=== PATIENT | female | born 1975 | race Caucasian/White ===

== ENCOUNTER 2017-05-02 18:57 | Emergency (ER) | payer SELFPAY ==
[2017-05-02 19:03] VITALS: BMI 31.3
[2017-05-02] MEDS ORDERED: NS 1000 ML 1,000 ML ONE (19:17)
--- NOTE | 2017-05-02 19:21 | DR.CP ---
HPI - Time Seen Time seen: 17:05 - PCP Primary Care Physician: NFD - Complaint Chief Complaint Doctor Comments: Patient states that she feels the way she felt when she was using "meth" Chief Complaint:: PT STATES, "I'M HURTING IN MY CHEST ALL THE WAY AROUND TO MY BACK." PT STATES, "IT WAS HURTING AROUND WHERE MY KIDNEYS ARE TOO." - Source History Provided: Patient - Mode of Arrival Mode of Arrival: Ambulatory - Timing Onset of Chief Complaint: 05/02/17 PMH - PMH Past Medical History: Yes Past Medical History: Asthma Past Surgical History: Yes Surgical History: , Cholecystectomy - Family History History of Family Medical Conditions: Yes Family Medical History: MD, Hypertension - Social History Alcohol Use: None Do you use any recreational Drugs:: No Lives With: Family Lives Where: Home - infectious screening In the last 2 months have you had wt loss of >10#?: NO Have you had fever, night sweats or hemotysis?: No Have you traveled outside the country in the last 6 months?: No Isolation: Standard ROS - Review of Systems Constitutional: negative: Diaphoresis Eyes: No Symptoms Reported ENTM: No Symptoms Reported Respiratoy: No Symptoms Reported Cardiovascular: Chest Pain Gastrointestinal/Abdominal: No Symptoms Reported Genitourinary: No Symptoms Reported Neurological: No Symptoms Reported Musculoskeletal: Back Pain Integumentary: No Symptoms Reported Hematologic/Lymphatic: No Symptoms Reported Endocrine: No Symptoms Reported Psychiatric: No Symptoms Reported All Other Systems: Reviewed and Negative PE - Vitals Vitals: Temperature 98.8 F Pulse Rate [Apical] 72 Pulse Rate 87 Respiratory Rate 20 Blood Pressure [Left Arm] 147/88 Blood Pressure 152/106 O2 Sat by Pulse Oximetry 96 - General Limitations: No Limitations General Appearance: Alert, Anxious - Head Head Exam: Normal Inspection, Atraumatic - Eyes Eye exam: Normal Appearance, PERRL, EOMI - ENT ENT Exam: Normal Exam - Chest Chest Inspection: Normal Inspection, Symmetric Chest Wall Rise - Respiratory Respiratory Exam: Normal Lung Sounds Bilat Respiratory Exam: Bilateral Clear to Auscultation - Cardiovascular Cardiovascular Exam: Regular Rate, Normal Rhythm Pulse: Normal, Radial Edema: Normal - Abdominal Exam Abdominal Exam: Normal Inspection Abdominal Tenderness: negative: RUQ, RLQ, LUQ, LLQ, Epigastrium, Suprapubic, Diffuse, Mild, Moderate, Severe, Other - Extremities Extremities Exam: Normal Inspection - Back Back Exam: Normal Inspection - Neurologic Neurological Exam: Alert, Oriented X3, CN II-XII Intact - Psychiatric Psychiatric Exam: Normal Affect - Skin Skin Exam: Warm, Dry Course - Reevaluation 1st: Improved ROR - Labs Reviewed Laboratory Results Reviewed?: Yes (cardiacs negative) Result Diagrams: 05/02/17 19:25 05/02/17 19:25 Laboratory: WBC 13.3 X10^3/uL (3.6-10.0) H 05/02/17 19:25 RBC 4.48 X10^6/uL (3.5-5.4) 05/02/17 19:25 Hgb 13.5 g/dL (12.0-16.0) 05/02/17 19:25 Hct 39.0 % (36.0-47.0) 05/02/17 19:25 MCV 86.9 fL (80.0-100.0) 05/02/17 19:25 MCH 30.1 pg (27.0-34.0) 05/02/17 19:25 MCHC 34.7 g/dL (33.0-35.0) 05/02/17 19:25 RDW 12.5 % (11.6-16.5) 05/02/17:25 Plt Count 334 X10^3/uL (150.0-450.0) 05/02/17 19:25 MPV 7.8 fL (7.4-11.0) 05/02/17 19:25 Neut % 66.1 % (42.0-75.0) 05/02/17 19:25 Lymph % 23.4 % (21.0-51.0) 05/02/17 19:25 [place] % 6.7 % (0.0-13.0) 05/02/17 19:25 Eos % 3.1 % (0.9-2.9) H 05/02/17 19:25 Baso % 0.7 % (0.2-1.0) 05/02/17 19:25 Neut # 8.8 x10^3/uL (2.2-4.8) H 05/02/17 19:25 Lymph # 3.1 X10^3/uL (1.3-2.9) H 05/02/17 19:25 [place] # 0.9 x10^3/uL (0.3-0.8) H 05/02/17 19:25 Eos # 0.4 x10^3/uL (0.0-0.2) H 05/02/17 19:25 Baso # 0.1 X10^3/uL (0.0-0.1) 05/02/17 19:25 Absolute Nucleated RBC 0.1 /100WBC 05/02/17 19:25 Sodium 141 mmol/L (136-145) 05/02/17 19:25 Corrected Sodium TNP 05/02/17 19:25 Potassium 3.7 mmol/L (3.5-5.1) 05/02/17 19:25 Chloride 105 mmol/L (98-107) 05/02/17 19:25 Carbon Dioxide 26.1 mmol/L (21-32) 05/02/17 19:25 BUN 18 mg/dL (7-18) 05/02/17 19:25 Creatinine 0.88 mg/dL (0.55-1.02) 05/02/17 19:25 Est GFR (MDRD) Af Amer > 60 (>60) 05/02/17 19:25 Est GFR (MDRD) Non-Af > 60 (>60) 05/02/17 19:25 Glucose 104 mg/dL (65-99) H 05/02/17 19:25 Calcium 9.2 mg/dL (8.5-10.1) 05/02/17 19:25 Corrected Calcium TNP 05/02/17 19:25 Total Bilirubin 0.30 mg/dL (0.2-1.0) 05/02/17 19:25 AST 17 Units/L (15-37) 05/02/17 19:25 ALT 21 Units/L (12-78) 05/02/17 19:25 Alkaline Phosphatase 72 Units/L (46-116) 05/02/17 19:25 Creatine Kinase 106 Units/L (26-192) 05/02/17 19:25 CK-MB (CK-2) 1.4 ng/mL (0-4.0) 05/02/17 19:25 CK/CKMB % Calc 1.3 % (<4) 05/02/17 19:25 Troponin I < 0.02 ng/mL (0-1.5) 05/02/17 19:25 Total Protein 7.9 g/dL (6.4-8.2) 05/02/17 19:25 Albumin 3.9 g/dL (3.4-5.0) 05/02/17 19:25 Globulin 4.0 g/dL (2.5-4.5) 05/02/17 19:25 Albumin/Globulin Ratio 1.0 Ratio (1.1-2.1) L 05/02/17 19:25 Specimen Type Clean catch urine 05/02/17 19:54 Urine Color Yellow (YELLOW) 05/02/17 19:54 Urine Appearance Clear (CLEAR) 05/02/17 19:54 Urine pH 5.0 (5.0 - 8.0) 05/02/17 19:54 Ur Specific [place] 1.025 (1.000-1.030) 05/02/17 19:54 Urine Protein Negative (NEGATIVE) 05/02/17 19:54 Urine Glucose (UA) Negative (NEGATIVE) 05/02/17 19:54 Urine Ketones Negative (NEGATIVE) 05/02/17 19:54 Urine Occult Blood 1+ (NEGATIVE) 05/02/17 19:54 Urine Nitrite Negative (NEGATIVE) 05/02/17 19:54 Urine Bilirubin Negative (NEGATIVE) 05/02/17 19:54 Urine Urobilinogen Normal (NORMAL) 05/02/17 19:54 Ur Leukocyte Esterase Negative (NEGATIVE) 05/02/17 19:54 Urine RBC 0-2 /HPF (NEGATIVE) 05/02/17 19:54 Urine WBC 0-2 /HPF (NEGATIVE) 05/02/17 19:54 Ur Squamous Epith Cells Rare /HPF (NEGATIVE) 05/02/17 19:54 Urine Bacteria Trace /HPF (NEGATIVE) 05/02/17 19:54 Ur Culture Indicated? No/not indicated 05/02/17 19:54 - EKG [place]: RAD Rhythm: NSR - Diagnosis Discharge Problem: Anxiety - Discharge Plan Condition: Stable - Follow ups/Referrals Follow ups/Referrals: NFD,None [Primary Care Provider] - 3 days - Instructions
[2017-05-02 19:35] LABS: BASOPHILS # (AUTO) 0.1 X10^3/uL (0.0-0.1); BASOPHILS % (AUTO) 0.7 % (0.2-1.0); EOSINOPHILS # (AUTO) 0.4 x10^3/uL (0.0-0.2); EOSINOPHILS % (AUTO) 3.1 % (0.9-2.9); HEMOGLOBIN 13.5 g/dL (12.0-16.0); LYMPHOCYTES # (AUTO) 3.1 X10^3/uL (1.3-2.9); LYMPHOCYTES % (AUTO) 23.4 % (21.0-51.0); MEAN CORPUSCULAR HEMOGLOBIN 30.1 pg (27.0-34.0); MEAN CORPUSCULAR HGB CONC 34.7 g/dL (33.0-35.0); MEAN CORPUSCULAR VOLUME 86.9 fL (80.0-100.0); MEAN PLATELET VOLUME 7.8 fL (7.4-11.0); MONOCYTES # (AUTO) 0.9 x10^3/uL (0.3-0.8); MONOCYTES % (AUTO) 6.7 % (0.0-13.0); NEUTROPHILS # (AUTO) 8.8 x10^3/uL (2.2-4.8); NEUTROPHILS % (AUTO) 66.1 % (42.0-75.0); PLATELET COUNT 334 X10^3/uL (150.0-450.0); RED BLOOD COUNT 4.48 X10^6/uL (3.5-5.4); RED CELL DISTRIBUTION WIDTH 12.5 % (11.6-16.5); WHITE BLOOD COUNT 13.3 X10^3/uL (3.6-10.0)
[2017-05-02] MEDS ORDERED: ATIVAN INJ 2 MG VIAL IVP ONE (19:46)
[2017-05-02] MEDS ORDERED: ATIVAN INJ 2 MG VIAL ONE (19:49)
[2017-05-02 19:55] LABS: BLOOD UREA NITROGEN 18 mg/dL (7-18); CALCIUM 9.2 mg/dL (8.5-10.1); CARBON DIOXIDE 26.1 mmol/L (21-32); CHLORIDE 105 mmol/L (98-107); CREATININE 0.88 mg/dL (0.55-1.02); GLUCOSE 104 mg/dL (65-99); SODIUM 141 mmol/L (136-145); TROPONIN I < 0.02 ng/mL (0-1.5); eGFR BLACK RACES > 60 (>60); eGFR NON BLACK RACES > 60 (>60)
[2017-05-02] MEDS ORDERED: NS 1000 ML 1,000 ML IV SCH (20:00)
[2017-05-02 20:01] LABS: ALANINE AMINOTRANSFERASE 21 Units/L (12-78); ALBUMIN 3.9 g/dL (3.4-5.0); ALKALINE PHOSPHATASE 72 Units/L (46-116); ASPARTATE AMINO TRANSFERASE 17 Units/L (15-37); CKMB % 1.3 % (<4); CREATINE KINASE 106 Units/L (26-192); CREATINE KINASE MB 1.4 ng/mL (0-4.0); TOTAL PROTEIN 7.9 g/dL (6.4-8.2)
[2017-05-02 20:02] LABS: BILIRUBIN,URINE NEGATIVE (NEGATIVE); BLOOD/HEMOGLOBIN,URINE 1+ (NEGATIVE); GLUCOSE, URINE NEGATIVE (NEGATIVE); KETONES,URINE NEGATIVE (NEGATIVE); LEUKOCYTE ESTERASE ,URINE NEGATIVE (NEGATIVE); NITRITES,URINE NEGATIVE (NEGATIVE); PROTEIN,URINE NEGATIVE (NEGATIVE); UROBILINOGEN,URINE NORMAL (NORMAL)
[2017-05-02 20:14] LABS: APPEARANCE,URINE CLEAR (CLEAR); BACTERIA,URINE TRACE /HPF (NEGATIVE); COLOR,URINE YELLOW (YELLOW); RBC,URINE 0-2 /HPF (NEGATIVE); SQUAMOUS EPITHELIAL CELL,UR RARE /HPF (NEGATIVE)
[2017-05-02 20:57] VITALS: BP 147/81
== END 2017-05-02 20:57 | disposition home or self-care (01) ==
LOC: ER 18:57
DX: F41.8 Other specified anxiety disorders (principal)
CPT/HCPCS: 36415; 80053; 81001; 82550; 82553; 84484; 85025; 93005; 93010; 96365; 96367; 96374; 99283; A4222; J2060